=== PATIENT | female | born 1955 | race Caucasian/White ===

== ENCOUNTER 2018-06-23 10:15 | Outpatient (CLI) | payer MEDICARE, SELFPAY ==
[2018-06-23 11:24] LABS: INR 2.3 (1.0-3.5); Prothrombin Time 21.4 sec (9.3-10.8)
== END 2018-06-23 10:35 ==
PROVIDERS: Visit Provider Internal Medicine
DX: G35 Multiple sclerosis (principal); Z79.01 Long term (current) use of anticoagulants
CPT/HCPCS: 36415; 85610

== ENCOUNTER 2018-06-29 15:16 | Outpatient (REF) | payer MEDICARE, SELFPAY ==
[2018-06-29 16:17] LABS: Bilirubin Negative (Negative); Blood Large (Negative); Clarity Cloudy; Glucose Negative (Negative); Ketones Negative (Negative); Leukocyte Esterase Large (Negative); Nitrite Positive (Negative); Specific Gravity 1.015 (1.005-1.025); Urobilinogen 0.2 EU/dL (Up TO 0.2); pH >= 9.0 (5-8)
[2018-06-29 16:25] LABS: Bacteria Many HPF (Negative); Casts Negative LPF (Negative); Crystals Negative HPF (Negative); Epithelial Cells Negative HPF (Negative); Mucus Negative (Negative); Other Cells Negative (Negative); RBC >50 (0-2)
[2018-06-29 16:36] LABS: C & S Indicated? Yes
== END 2018-06-29 15:36 ==
LOC: LBN 15:16
PROVIDERS: Visit Provider Internal Medicine
DX: R32 Unspecified urinary incontinence (principal); N39.0 Urinary tract infection, site not specified
CPT/HCPCS: 87077; 81003; 81015; 87086; 87186

== ENCOUNTER 2018-10-23 11:36 | Outpatient (REF) | payer MEDICARE, SELFPAY ==
[2018-10-23 12:37] LABS: Bilirubin Negative (Negative); Blood Small (Negative); Clarity Cloudy; Glucose Negative (Negative); Ketones Negative (Negative); Leukocyte Esterase Large (Negative); Nitrite Negative (Negative); Urobilinogen 0.2 EU/dL (Up TO 0.2); pH >= 9.0 (5-8)
[2018-10-23 13:00] LABS: Bacteria Many HPF (Negative); C & S Indicated? Yes
== END 2018-10-23 11:56 ==
LOC: LBN 11:36
PROVIDERS: Visit Provider Internal Medicine
DX: R31.9 Hematuria, unspecified (principal); N39.0 Urinary tract infection, site not specified
CPT/HCPCS: 81003; 81015; 87086

== ENCOUNTER 2018-11-14 16:42 | Outpatient (REF) | payer MEDICARE, MEDICAID, SELFPAY ==
[2018-11-14 19:18] LABS: Bilirubin Negative (Negative); Blood Large (Negative); Clarity Cloudy; Glucose Negative (Negative); Ketones Negative (Negative); Leukocyte Esterase Large (Negative); Nitrite Positive (Negative); Specific Gravity 1.015 (1.005-1.025); Urobilinogen 0.2 EU/dL (Up TO 0.2); pH 8.5 (5-8)
[2018-11-14 20:03] LABS: WBC >50 HPF (0-5)
[2018-11-14 20:04] LABS: Bacteria Many HPF (Negative); C & S Indicated? Yes
== END 2018-11-14 17:02 ==
LOC: LBN 16:42
PROVIDERS: Visit Provider Internal Medicine
DX: N39.0 Urinary tract infection, site not specified (principal)
CPT/HCPCS: 81003; 81015; 87086

== ENCOUNTER 2018-11-19 21:01 | Emergency (ER) | payer MEDICARE, MEDICAID, SELFPAY ==
[2018-11-19 21:08] VITALS: BP 109/40; PULSE 108; RESP 16; TEMP 36.8; O2SAT 91
--- NOTE | 2018-11-19 21:15 | ED.GENADUL_ITS ---
Discharge Plan Disposition Patient Disposition: HOME Condition: Good Discharge Details Chief Complaint: Epistaxis Clinical Impression: Acute anterior epistaxis Reason For Visit: OTONIEL Primary Care Provider: None,None ED Provider: Jesus Manuel Kiran and Volodymyr Rx's Prescriptions: Continued warfarin [Coumadin] 5 mg Tablet 2.5 mg PO DAILY RF: 0 tizanidine 2 mg Tablet 2 mg PO TID RF: 0 atenolol 25 mg Tablet 25 mg PO DAILY RF: 0 baclofen 20 mg Tablet 20 mg PO TID RF: 0 docusate sodium [Colace] 100 mg Capsule 100 mg PO BID RF: 0 calcium carbonate [Tums] 300 mg (750 mg) Tablet,Chewable 1,500 mg PO DAILY RF: 0 cholecalciferol (vitamin D3) [Vitamin D3] 2,000 unit Tablet RF: 0 Discharge Instructions Instructions: Nosebleed (ED) Additional Instructions: Continue to use humidifier/vaporizer to keep moisture in the air at home. Gently apply antibiotic ointment to the inside of your nose twice a day. Follow-up with primary care or ENT if continued issues with nosebleeds. Return to emergency department if unable to control bleeding at home. Referrals: Primary Care Provider [Outside] Medical Decision Making Patient is on Coumadin but she just had her level checked less than a week ago and it was 2.9. There is an obvious area of anterior septal bleeding in the left nares that is amendable to cauterization. Cotton pledget soaked in lidocaine and phenylephrine was placed. Pressure was applied. Eventually bleeding was controlled. Silver nitrate then used to cauterize the area. There is been no further bleeding. 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 She will need to go by ambulance as she is disabled and bedbound by her multiple sclerosis. HPI General Mode of arrival: EMS . Date/Time Provider Initiated Documentation: 11/19/18 21:04 . Limitations to Documentation: no limitations . Information obtained by: patient . HPI Narrative: Patient presents to ED by ambulance with bleeding from the left nares. She is on Coumadin because of prior pulmonary embolus. She has a history of multiple sclerosis and is essentially bedbound. She has not had nosebleeds previously. She has not been having URI type symptoms. She does have very dry living area and just started getting vaporizer for moisture in the air. She was unable to get the bleeding to stop so she called EMS and is transported in for evaluation. Related Data Home Medications Medication Instructions Recorded Confirmed atenolol 25 mg PO DAILY 11/19/18 11/19/18 baclofen 20 mg PO TID 11/19/18 11/19/18 calcium carbonate [Tums] 1,500 mg PO DAILY 11/19/18 11/19/18 cholecalciferol (vitamin D3) 11/19/18 [Vitamin D3] docusate sodium [Colace] 100 mg PO BID 11/19/18 11/19/18 tizanidine 2 mg PO TID 11/19/18 11/19/18 warfarin [Coumadin] 2.5 mg PO DAILY 11/19/18 11/19/18 Allergies Allergy/AdvReac Type Severity Reaction Status Date / Time No Known Allergies Allergy Unverified 11/19/18 21:14 General Stated Complaint: Epistaxis GUILLE: 3 Review of Systems Constitutional Denies fever(s), Denies headache(s) and Denies malaise ENT Denies otalgia, Denies facial pain, Denies headache(s), Reports epistaxis, Denies nasal congestion, Denies nasal discharge, Denies nasal trauma and Denies sore throat Cardiovascular Denies chest pain, Denies palpitations and Denies dyspnea Respiratory Denies dyspnea Neurologic Denies headache(s) Endocrine Denies palpitations Hematologic/Lymphatic Reports easy bleeding (on Coumadin) PFSH Medical History HTN (hypertension) (Chronic) Multiple sclerosis (Chronic) Pulmonary embolism (Chronic) Surgical History S/P ORIF (open reduction internal fixation) fracture (Inactive) Social History caregiver/support person: Yes Smoking and Tabacco status: Former Tobacco Use Exam Const General: cooperative, comfortable and no acute distress Orientation: alert and oriented x3 [facility] Head: normocephalic and atraumatic General nose exam: external nose normal, epistaxis on the left and septum abnormal (Source of bleeding from anterior septal area on L) Neuro General: alert, oriented x3 and no focal motor deficits (right sided weakness due to MS) Cognition: normal cognition Speech: speech normal Course Vital Signs Temperature 98.2 F 11/19/18 21:08 Pulse 108 H 11/19/18 21:08 Respiratory Rate 16 11/19/18 21:08 Blood Pressure 109/40 L 11/19/18 21:08 Pulse Oximetry 91 L 11/19/18 21:08 Temperature 98.2 F 11/19/18 21:08 Temperature Source Temporal Artery Scan 11/19/18 21:08 Pulse 108 H 11/19/18 21:08 Respiratory Rate 16 11/19/18 21:08 Blood Pressure 109/40 L 11/19/18 21:08 Pulse Oximetry 91 L 11/19/18 21:08 Oxygen Delivery Method Room Air 11/19/18 21:08 Oxygen Flow Rate 0 11/19/18 21:08 Pain Level 0 11/19/18 21:08 Procedures Epistaxis Control Time Out Performed: Yes Nostril: left Nose Prepped With: lidocaine and phenylephrine Direct Inspection: yes and anterior source identified Clots Removed by: suction Cautery Used: silver nitrate Patient Tolerated Procedure: well
[2018-11-19] MEDS: Ondansetron O.D.T. 4 MG TABEF PO (23:02)
[2018-11-19 23:03] VITALS: BP 123/80; PULSE 102; RESP 16; TEMP 36.7; O2SAT 97
--- NOTE | 2018-11-20 00:21 | NUR.NOTE ---
Nursing Note: pt was turned onto her right side
--- NOTE | 2018-11-20 01:55 | NUR.NOTE ---
Nursing Note: pt is turned to her left side. pt is staying in er tonight due to road conditions and ambulance can not get up her driveway
--- NOTE | 2018-11-20 04:08 | NUR.NOTE ---
Nursing Note: turned pt on her back
--- NOTE | 2018-11-20 06:59 | NUR.NOTE ---
Nursing Note: at 0600 pt was turned onto her right side
--- NOTE | 2018-11-20 07:02 | NUR.NOTE ---
assumed care of patient Nursing Note:
--- NOTE | 2018-11-20 09:11 | NUR.NOTE ---
patient discharged without receiving morning medication, gericare aide teacher aware and will be admin at home Nursing Note:
--- NOTE | 2018-11-20 09:12 | NUR.NOTE ---
no active nose bleed at time of discharge Nursing Note:
== END 2018-11-20 08:49 | disposition home or self-care (01) ==
PROVIDERS: Emergency Provider Emergency Medicine
DX: R04.0 Epistaxis (principal); I10 Essential (primary) hypertension; G35 Multiple sclerosis; Z74.01 Bed confinement status; Z79.01 Long term (current) use of anticoagulants; Z86.711 Personal history of pulmonary embolism; T45.515A Adverse effect of anticoagulants, initial encounter
CPT/HCPCS: 30901

== ENCOUNTER 2019-02-20 14:07 | Outpatient (REF) | payer MEDICARE, MEDICAID, SELFPAY ==
[2019-02-20 15:44] LABS: Bilirubin Negative (Negative); Blood Negative (Negative); Clarity Clear; Glucose Negative (Negative); Ketones Negative (Negative); Leukocyte Esterase Moderate (Negative); Nitrite Positive (Negative); Specific Gravity 1.015 (1.005-1.025); Urobilinogen 0.2 EU/dL (Up TO 0.2)
[2019-02-20 15:56] LABS: Epithelial Cells Negative HPF (Negative); RBC 0-2 (0-2); WBC 20-50 HPF (0-5)
[2019-02-20 15:57] LABS: Bacteria Many HPF (Negative); C & S Indicated? Yes; Crystals Negative HPF (Negative); Mucus Negative (Negative)
== END 2019-02-20 14:27 ==
LOC: LBN 14:07
PROVIDERS: PCP Internal Medicine; Visit Provider Internal Medicine
DX: R32 Unspecified urinary incontinence (principal)
CPT/HCPCS: 87077; 81003; 81015; 87086; 87186

== ENCOUNTER 2019-05-29 00:44 | Emergency (ER) | payer MEDICARE, MEDICAID, SELFPAY ==
--- NOTE | 2019-05-29 00:42 | ED.GENADUL_ITS ---
Discharge Plan Disposition Patient Disposition: HOME Condition: Improving Discharge Details Chief Complaint: Epistaxis Clinical Impression: Epistaxis Primary Care Provider: Alisha Degroot ED Provider: Rosa Maria Moreau Home Meds and New Rx's Prescriptions: Continued warfarin [Coumadin] 5 mg Tablet 2.5 mg PO DAILY RF: 0 tizanidine 2 mg Tablet 2 mg PO TID RF: 0 atenolol 25 mg Tablet 25 mg PO DAILY RF: 0 baclofen 20 mg Tablet 20 mg PO TID RF: 0 docusate sodium [Colace] 100 mg Capsule 100 mg PO BID RF: 0 calcium carbonate [Tums] 300 mg (750 mg) Tablet,Chewable 1,500 mg PO DAILY RF: 0 cholecalciferol (vitamin D3) [Vitamin D3] 2,000 unit Tablet RF: 0 Discharge Instructions Instructions: Nosebleed (ED) Additional Instructions: Take your Coumadin as directed. Avoid nose blowing and be sure to keep your mouth open when sneezing. Follow-up with your primary care doctor this week for reevaluation and for referral to ENT if symptoms persist or worsen. Return immediately to the emergency department if you develop any worsening or new concerning symptoms. Discharge Data Discharge Physician: Rosa Maria Moreau Medical Decision Making 0045 -- 63yo F w/ a h/o pulmonary embolism on coumadin, multiple sclerosis, and HTN here with epistaxis. This is a second episode today each lasting 45 minutes and from the left nares only. Bleeding resolved prior to transport to the ED. There is noted to be an area of fresh blood to the anterior nares and septum. This was cauterized with silver nitrate to prevent any possible further bleeding. INR last week 2.7 or 2.9. We will repeat INR today. Patient is hemodynamically stable and has no acute complaints. 0135 --INR 2.2. Patient has had no further bleeding after observed for 1 hour. Patient has no acute complaints and feels good to go home. Her home provider was called and will come to pick her up in a wheelchair van as patient is immobile and bedbound due to her multiple sclerosis. Patient advised to follow-up with her primary care doctor for reevaluation and for referral to ENT if symptoms persist or worsen and to return to the ER with any concerns. Medical Records Medical records reviewed: Yes I reviewed the patient's medical records. Lab Data Lab results reviewed: Yes I reviewed the patient's lab results. Laboratory Tests Range/Units 05/29/19 01:04 PT (9.3-11.0) sec 22.1 H INR (0.9-1.1) 2.2 H HPI General Mode of arrival: ambulatory . Date/Time Provider Initiated Documentation: 05/29/19 00:50 . Limitations to Documentation: no limitations . Information obtained by: patient . HPI Narrative: Patient is a 63-year-old female with a history of pulmonary embolism on Coumadin, multiple sclerosis and hypertension who presents for epistaxis. Patient states she has had 2 episodes of left-sided epistaxis today, each lasting 45 minutes. Earlier today she called EMS and they were able to control the bleeding with pressure and she declined transport. This evening, bleeding started again in the left side. EMS again placed pressure and her bleeding was resolved prior to transport. She denies any headache, dizziness, chest pain or shortness of breath. She states her INR 1 week ago was 2.7 or 2.9. She denies any other new medications or recent antibiotics. Related Data Home Medications Medication Instructions Recorded Confirmed atenolol 25 mg PO DAILY 11/19/18 05/29/19 baclofen 20 mg PO TID 11/19/18 05/29/19 calcium carbonate [Tums] 1,500 mg PO DAILY 11/19/18 05/29/19 cholecalciferol (vitamin D3) 11/19/18 [Vitamin D3] docusate sodium [Colace] 100 mg PO BID 11/19/18 05/29/19 tizanidine 2 mg PO TID 11/19/18 05/29/19 warfarin [Coumadin] 2.5 mg PO DAILY 11/19/18 05/29/19 Allergies Allergy/AdvReac Type Severity Reaction Status Date / Time No Known Allergies Allergy Unverified 05/29/19 00:51 General GUILLE: 3 Review of Systems Review of Systems All systems reviewed & are unremarkable except as noted in HPI and below Constitutional Reports as per HPI, Denies chills and Denies fever(s) Eyes Denies blurry vision ENT Denies dizziness, Reports epistaxis, Denies sore throat and Denies throat swelling Cardiovascular Denies chest pain and Denies dyspnea Respiratory Denies cough and Denies dyspnea Gastrointestinal Denies abdominal pain, Denies diarrhea and Denies vomiting Genitourinary Denies hematuria and Denies dysuria Musculoskeletal Denies back pain and Denies numbness Integumentary/Breasts Denies lesions and Denies rash Neurologic Denies dizziness, Denies focal weakness and Denies numbness Allergic/Immunologic Denies throat swelling [facility] Medical History HTN (hypertension) (Chronic) Multiple sclerosis (Chronic) Pulmonary embolism (Chronic) Surgical History S/P ORIF (open reduction internal fixation) fracture (Inactive) right femur Social History Smoking/Tobacco Use Status: Former Tobacco Use Drug use: Never Caregiver/Support person: Yes Do you feel safe in your relationship?: Yes Exam Const General: cooperative, healthy appearing and no acute distress HENMT Head: normal to inspection Ears: hearing grossly normal bilaterally and external ears normal General nose exam: epistaxis on the left (fresh red blood noted just inside L nares but no pulsatile bleeding) Mouth: oral mucosae normal Throat: posterior oropharynx normal Eyes General: appearance normal, both eyes and all related structures Neck Neck: normal visual inspection Resp Effort & Inspection: normal respiratory effort and able to speak in complete sentences Auscultation: clear to auscultation bilaterally Cardio Rate: regular rate Rhythm: regular rhythm GI Inspection: normal to inspection and obesity Palpation: soft and nontender Skin General skin exam: no rashes or lesions noted Neuro General: alert, awake and oriented x3 Motor: muscle tone normal throughout Extrem General: normal to inspection and full ROM Psych Appearance: grossly normal Affect: normal affect
[2019-05-29 00:46] VITALS: BP 108/76; PULSE 69; RESP 18; TEMP 36.5; O2SAT 93
[2019-05-29 01:30] LABS: INR 2.2 (0.9-1.1); Prothrombin Time 22.1 sec (9.3-11.0)
[2019-05-29 02:41] VITALS: BP 108/76; PULSE 69; RESP 18; O2SAT 93
== END 2019-05-29 02:40 | disposition home or self-care (01) ==
LOC: ER 02:34
PROVIDERS: Emergency Provider Physician Assistant; PCP Internal Medicine
DX: R04.0 Epistaxis (principal); Z79.01 Long term (current) use of anticoagulants; Z86.711 Personal history of pulmonary embolism; G35 Multiple sclerosis; Z99.3 Dependence on wheelchair; I10 Essential (primary) hypertension
CPT/HCPCS: 30901; 36415; 85610

== ENCOUNTER 2019-09-24 14:17 | Outpatient (REF) | payer MEDICARE, MEDICAID, SELFPAY ==
[2019-09-24 15:32] LABS: Bilirubin Negative (Negative); Blood Large (Negative); Clarity Clear (Clear); Glucose Negative (Negative); Ketones Negative (Negative); Leukocyte Esterase Large (Negative); Nitrite Negative (Negative); Specific Gravity 1.015 (1.005-1.025); Urobilinogen 0.2 EU/dL (Up TO 0.2)
[2019-09-24 15:41] LABS: Bacteria Moderate HPF (Negative); C & S Indicated? Yes; Casts Negative LPF (Negative); Crystals Negative HPF (Negative); Epithelial Cells Negative HPF (Negative); Mucus Negative (Negative); RBC >50 HPF (0-2); WBC 20-50 HPF (0-5)
== END 2019-09-24 14:37 ==
LOC: LBN 14:17
PROVIDERS: PCP Internal Medicine; Visit Provider Internal Medicine
DX: R82.90 Unspecified abnormal findings in urine (principal); G35 Multiple sclerosis
CPT/HCPCS: 81003; 81015; 87086

== ENCOUNTER 2019-12-14 15:26 | Outpatient (REF) | payer MEDICARE, MEDICAID, SELFPAY ==
[2019-12-14 15:58] LABS: Bilirubin Negative (Negative); Blood Moderate (Negative); Clarity Cloudy (Clear); Glucose Negative (Negative); Ketones Negative (Negative); Leukocyte Esterase Large (Negative); Nitrite Positive (Negative); Specific Gravity 1.015 (1.005-1.025); Urobilinogen 0.2 EU/dL (Up TO 0.2); pH 8.5 (5-8)
[2019-12-14 16:15] LABS: Bacteria Packed HPF (Negative); C & S Indicated? Yes; Crystals Moderate Triple Phos HPF (Negative); Epithelial Cells Negative HPF (Negative); RBC >50 HPF (0-2)
== END 2019-12-14 15:46 ==
LOC: LBN 15:26
PROVIDERS: PCP Internal Medicine; Visit Provider Internal Medicine
DX: N39.0 Urinary tract infection, site not specified (principal)
CPT/HCPCS: 87077; 81003; 81015; 87086; 87186

== ENCOUNTER 2020-02-05 10:48 | Outpatient (REF) | payer MEDICARE, MEDICAID, SELFPAY ==
[2020-02-05 11:09] LABS: Abs Immature Grans 0.01 k/cumm (0.0-0.09); Absolute Basophil Count 0.02 k/cumm (0.0-0.2); Absolute Eosinophil Count 0.24 k/cumm (0.0-0.7); Absolute Lymphocyte Count 2.17 k/cumm (1.2-3.4); Absolute Monocyte Count 0.89 k/cumm (0.11-0.7); Absolute Neutrophil Count 5.12 k/cumm (1.2-6.7); Basophils % 0.2; Eosinophils % 2.8; HGB 13.7 g/dL (12.0-15.5); Immature Grans % 0.1 %; Lymphocytes % 25.7; Mean Corp. HGB Concentration 32.6 g/dL (32.0-36.0); Mean Corpuscular Volume 92.1 fL (80-95); Monocytes % 10.5; Neutrophils % 60.7; Platelet Count 233 x1000/uL (130-400); RBC 4.56 m/cumm (4.00-5.20); RBC Distribution Width 16.2 % (11.7-14.6); White Blood Cell Count 8.45 k/cumm (4.4-10.8)
[2020-02-05 11:20] LABS: ALT 26 U/L (14-59); AST 16 U/L (15-37); Albumin 3.1 g/dL (3.4-5.0); Alkaline Phosphatase 136 U/L (46-116); Anion Gap 7.7 mmol/L (3-11); BUN 20 mg/dL (7-18); Bilirubin, Total 0.3 mg/dL (0.2-1.0); CO2 28.3 mmol/L (21.0-32.0); CREATININE 0.74 mg/dL (0.55-1.02); Calcium 8.7 mg/dL (8.5-10.1); Chloride 106 mmol/L (98-107); Glucose 101 mg/dL (74-106); Magnesium 1.8 mg/dL (1.8-2.4); Potassium 4.1 mmol/L (3.5-5.1); Sodium 142 mmol/L (136-145); Total Protein 7.1 g/dL (6.4-8.2)
[2020-02-05 11:44] LABS: Bilirubin Negative (Negative); Blood Large (Negative); Clarity Cloudy (Clear); Glucose Negative (Negative); Ketones Negative (Negative); Leukocyte Esterase Large (Negative); Nitrite Positive (Negative); Specific Gravity >= 1.030 (1.005-1.025); Urobilinogen 0.2 EU/dL (Up TO 0.2)
[2020-02-05 11:51] LABS: WBC >50 HPF (0-5)
[2020-02-05 11:52] LABS: C & S Indicated? Yes
== END 2020-02-05 11:08 ==
LOC: LBN 10:48
PROVIDERS: PCP Internal Medicine; Visit Provider Internal Medicine
DX: G35 Multiple sclerosis (principal); R82.998 Other abnormal findings in urine
CPT/HCPCS: 80053; 87077; 81003; 81015; 83735; 85025; 87086; 87186